=== PATIENT | female | born 1995 | race Caucasian/White ===

== ENCOUNTER 2016-07-20 09:50 | Inpatient (IN) | payer MEDICAID, OTHER ==
[~2016-07-20] VITALS: Ht 157.5 cm; Wt 110.2 kg
[2016-07-20 10:00] VITALS: BP 130/68
[2016-07-20] MEDS ORDERED: LACTATED RINGERS 1,000 ML IV SCH (10:20)
[2016-07-20] MEDS ORDERED: MORPHINE SULFATE 5 MG/ML VIAL IVP STA (11:02)
[2016-07-20] MEDS ORDERED: MORPHINE SULFATE 10 MG/ML SYR ONE (11:07)
[2016-07-20] MEDS ORDERED: KETOROLAC 30 MG/ML VIAL IVP PRN (14:05)
[2016-07-20] MEDS ORDERED: MORPHINE SULFATE 2 MG/ML SYR IVP PRN (14:05)
[2016-07-20] MEDS: POTASSIUM CHL 20 MEQ/NACL 0.9% 1,000 ML IV SCH (15:49)
[2016-07-21] MEDS: POTASSIUM CHL 20 MEQ/NACL 0.9% 1,000 ML IV SCH (01:34)
[2016-07-21] MEDS ORDERED: ePHEDrine 50 MG/ML VIAL IV ONE (11:45)
[2016-07-21] MEDS ORDERED: DEXAMETHASONE 4 MG/ML VIAL IVP ONE (11:45)
[2016-07-21] MEDS ORDERED: ONDANSETRON 4 MG/2 ML VIAL IVP ONE (11:45)
[2016-07-21] MEDS ORDERED: MIDAZOLAM 2 MG/2 ML VIAL ONE (12:06)
[2016-07-21] MEDS ORDERED: fentaNYL 0.05 MG/ML VIAL ONE (12:06)
[2016-07-21] MEDS ORDERED: MORPHINE PRES FREE 10 MG/10 ML AMP IV ONE (12:06)
[2016-07-21] MEDS ORDERED: KETOROLAC 30 MG/ML VIAL IVP PRN (12:45)
[2016-07-21] MEDS ORDERED: diphenhydrAMINE 50 MG/ML VIAL IVP PRN (12:45)
[2016-07-21] MEDS ORDERED: PROPOFOL 1000 MG/100 ML PREMIX 100 ML IV PRN (14:35)
[2016-07-21] MEDS ORDERED: HYDROmorphone 1 MG/ML AMP IVP PRN (17:15)
[2016-07-21] MEDS: KETOROLAC 30 MG/ML VIAL IVP PRN (20:11)
[2016-07-21] MEDS: ONDANSETRON 4 MG/2 ML VIAL IVP PRN (20:22)
[2016-07-21] MEDS: LACTATED RINGERS 1,000 ML IV SCH (21:09)
--- NOTE | 2016-07-21 21:35 | NUR ---
AWAKE AND ALERT RESPONSIVE OT BOOTH USHER VERBAL COMMANDS EDUCATION PROVIDED TO PATIENT WITH ACKNOWLEDGEMENT ON INCENTIVE SPIROMETRY (IS) TOLERATED IS PROCEDURE WELL WITHOUT INCIDENT ENCOURAGED PATIENT TO USE IS EVERY TWO HOURS WHILE AWAKE
[2016-07-22] MEDS: ONDANSETRON 4 MG/2 ML VIAL IVP PRN (00:53)
[2016-07-22] MEDS: LACTATED RINGERS 1,000 ML IV SCH ×2 (06:39→15:39)
[2016-07-22] MEDS ORDERED: NAPHAZOLINE OP SCH (14:49)
[2016-07-22] MEDS ORDERED: PHENIRAMINE OP SCH (14:49)
[2016-07-22] MEDS: PHENIRAMINE OP SCH ×2 (14:55→20:51)
[2016-07-22] MEDS: NAPHAZOLINE OP SCH ×2 (14:55→20:51)
[2016-07-23] MEDS: LACTATED RINGERS 1,000 ML IV SCH (00:14)
[2016-07-23] MEDS: KETOROLAC 30 MG/ML VIAL IVP PRN (02:21)
[2016-07-23] MEDS ORDERED: IBUPROFEN 600 MG TAB PO PRN (08:00)
[2016-07-23] MEDS ORDERED: SODIUM PHOSPHATE 118 ML ENEM RC PRN (08:00)
[2016-07-23] MEDS: DOCUSATE SODIUM 100 MG GELCAP PO PRN (09:04)
[2016-07-23] MEDS: PHENIRAMINE OP SCH ×4 (09:04→21:16)
[2016-07-23] MEDS: NAPHAZOLINE OP SCH ×4 (09:04→21:16)
[2016-07-23] MEDS: BISACODYL 5 MG TABEC PO PRN (09:04)
[2016-07-23] MEDS: oxyCODONE/APAP 5/325 MG 1 TAB TAB PO PRN (13:05)
[2016-07-23] MEDS: SIMETHICONE 80 MG TAB.CHEW PO PRN (17:34)
[2016-07-24] MEDS: oxyCODONE/APAP 5/325 MG 1 TAB TAB PO PRN ×4 (02:09→20:22)
[2016-07-24] MEDS: PHENIRAMINE OP SCH ×2 (09:13→13:25)
[2016-07-24] MEDS: NAPHAZOLINE OP SCH ×2 (09:13→13:25)
[2016-07-24] MEDS: BISACODYL 5 MG TABEC PO PRN (15:56)
[2016-07-24] MEDS: DOCUSATE SODIUM 100 MG GELCAP PO PRN (15:56)
[2016-07-24] MEDS: SIMETHICONE 80 MG TAB.CHEW PO PRN (15:58)
[2016-07-25] MEDS: oxyCODONE/APAP 5/325 MG 1 TAB TAB PO PRN (02:39)
== END 2016-07-25 16:50 | disposition home or self-care (01) | DRG 546 ==
LOC: MLD 09:50 → OBSVTOIN 15:30 → MFCC 16:28
PROVIDERS: ADMIT Obstetrics & Gynecology; ATTEND Obstetrics & Gynecology
PROC: 0UT10ZZ Resection of Left Ovary, Open Approach (ICD-10-PCS; principal; 2016-07-25)
DX: O34.82 Maternal care for other abnormalities of pelvic organs, second trimester (principal); Z68.41 Body mass index [BMI] 40.0-44.9, adult; E66.01 Morbid (severe) obesity due to excess calories; O99.212 Obesity complicating pregnancy, second trimester; N83.202 Unspecified ovarian cyst, left side; Z3A.17 17 weeks gestation of pregnancy
CPT/HCPCS: G0378 ×6